=== PATIENT | male | born 1985 | race African-American/Black ===

== ENCOUNTER 2016-10-08 08:47 | Emergency (ER) | payer OTHER ==
[2016-10-08 08:52] VITALS: BP 138/79; PULSE 67; RESP 20; TEMP 98
[2016-10-08] MEDS ORDERED: BUPIVACAINE (PF) 0.5% 30 ML VIAL SQ STA (08:58)
--- NOTE | 2016-10-08 09:11 | ED ---
ENT HPI - General Chief complaint: Dental/Oral Stated complaint: DENTAL PAIN Time Seen by Provider: 10/08/16 08:54 Source: patient, RN notes reviewed Mode of arrival: ambulatory Limitations: no limitations - History of Present Illness Initial comments: 30-year-old male presents emergency Department chief complaint of left-sided dental pain. Patient states that for the past 2 days. Patient states that he started Motrin Tylenol for pain as well as Orajel. Patient some relief but then it will return. Patient states he did not see the dentist. Patient denies any pain into the neck or any difficulty in opening closing the mouth. Patient states that he was concerned due to his continued symptoms that he should be evaluated.Patient denies any recent fever, chills, shortness of breath , chest pain, back pain, abdominal pain, nausea vomiting, numbness or tingling, dysuria or hematuria, constipation or diarrhea, headaches or visual changes, or any other current symptoms. - Related Data Previous Rx's Medication Instructions Recorded Penicillin V Potassium [Pen Vee K] 500 mg PO TID #40 tab 10/08/16 traMADol HCl [Ultram] 50 mg PO Q4H PRN #20 tab 10/08/16 Allergies Allergy/AdvReac Type Severity Reaction Status Date / Time No Known Allergies Allergy Verified 10/08/16 08:52 Review of Systems ROS Statement: Those systems with pertinent positive or pertinent negative responses have been documented in the HPI. ROS Other: All systems not noted in ROS Statement are negative. Past Medical History Past Medical History: No Reported History History of Any Multi-Drug Resistant Organisms: None Reported Past Surgical History: No Surgical Hx Reported Past Psychological History: No Psychological Hx Reported Smoking Status: Current every day smoker Past Alcohol Use History: None Reported Past Drug Use History: None Reported General Exam Limitations: no limitations General appearance: alert, in no apparent distress Head exam: Present: atraumatic, normocephalic, normal inspection Eye exam: Present: normal appearance Expanded Ear exam: Present: normal external inspection Mouth exam: Present: normal external inspection Teeth exam: Present: dental tenderness # (17), other (No abscess). Absent: gingival enlargement Throat exam: normal inspection Neck exam: Present: normal inspection. Absent: tenderness, meningismus, lymphadenopathy Respiratory exam: Present: normal lung sounds bilaterally. Absent: respiratory distress, wheezes, rales, rhonchi, stridor Cardiovascular Exam: Present: regular rate, normal rhythm, normal heart sounds. Absent: systolic murmur, diastolic murmur, rubs, gallop, clicks Neurological exam: Present: alert, oriented X3, CN II-XII intact. Absent: motor sensory deficit Psychiatric exam: Present: normal affect, normal mood Skin exam: Present: warm, dry, intact, normal color. Absent: rash Course Vital Signs 10/08/16 08:48 Temperature 98 F Pulse Rate 67 Respiratory 20 Rate Blood Pressure 138/79 O2 Sat by Pulse 98 Oximetry Procedures - Nerve Block Consent Obtained: verbal consent Time Out Performed: Yes Local Anesthetic Used: Marcaine 0.5% Side: left Intraoral Nerve Block: inferior alveolar Procedure Successful: Yes Complications: none Patient Tolerated Procedure: well Medical Decision Making - Medical Decision Making 30-year-old male presents with left-sided dental pain. This time patient does appear to have dental.. The patient under went a nerve block and is feeling improvement. The STEMI discussed follow-up with the dentist. We discussed use medications and return parameters. Patient states that he understood and all his questions have been answered. He will be discharged home. Disposition Clinical Impression: Dental caries Disposition: HOME SELF-CARE Condition: Stable Instructions: Dental Caries (ED) Additional Instructions: Please use medication as discussed. Please follow up with family doctor if symptoms have not improved over the next two days. Please return to the emergency room if your symptoms increase or worsen or for any other concerns. [facility] [address] [address] [phone] (existing clients only) For new clients: [phone] 1st consult: $50 (includes Xrays) Usually 30% less then private dentist for visits after. [employer] [facility] [employer] Have to pay $50 for Xrays anmd rest is covered. [phone] Prescriptions: Penicillin V Potassium [Pen Vee K] 500 mg PO TID #40 tab traMADol HCl [Ultram] 50 mg PO Q4H PRN #20 tab PRN Reason: Pain Referrals: None,Stated [Primary Care Provider] - 1-2 days Shirley Keith MD [STAFF PHYSICIAN] - 1-2 days Time of Disposition: 09:16
== END 2016-10-08 09:22 | disposition home or self-care (01) ==
LOC: EC 08:47
DX: K02.9 Dental caries, unspecified (principal); F17.200 Nicotine dependence, unspecified, uncomplicated
CPT/HCPCS: 64400; 99282

== ENCOUNTER 2016-10-22 08:35 | Emergency (ER) | payer OTHER ==
[2016-10-22 08:56] VITALS: TEMP 98.4
--- NOTE | 2016-10-22 09:09 | ED ---
General Adult HPI - General Chief complaint: Upper Respiratory Infection Stated complaint: Sob/congestion Time Seen by Provider: 10/22/16 08:57 Source: patient Mode of arrival: ambulatory Limitations: no limitations - History of Present Illness Initial comments: 30-year-old male patient presents to emergency department stay for complaints of cough and congestion 2 months. Patient states that his symptoms are worsening, but they aren't getting any better. Patient is also complaining of some left lower dental pain. He has a large cavity has previous a completed antibiotics for this. Patient states he has an appointment with a dentist on January 19. Patient denies any fever or chills. He denies any chest pain, neck pain, shortness of breath, wheezing, facial pain, or upper dental pain. He denies any sputum production. Denies any facial swelling, or drainage from the area around the tooth. - Related Data Previous Rx's Medication Instructions Recorded Clindamycin HCl 300 mg PO Q6HR #40 cap 10/22/16 Ibuprofen [Motrin] 600 mg PO Q8HR PRN #30 tab 10/22/16 Allergies Allergy/AdvReac Type Severity Reaction Status Date / Time No Known Allergies Allergy Verified 10/22/16 08:56 Review of Systems ROS Statement: Those systems with pertinent positive or pertinent negative responses have been documented in the HPI. ROS Other: All systems not noted in ROS Statement are negative. Past Medical History Past Medical History: No Reported History History of Any Multi-Drug Resistant Organisms: None Reported Past Surgical History: No Surgical Hx Reported Past Psychological History: No Psychological Hx Reported Smoking Status: Current every day smoker Past Alcohol Use History: None Reported Past Drug Use History: Marijuana General Exam Limitations: no limitations General appearance: alert, in no apparent distress Head exam: Present: atraumatic, normocephalic, normal inspection Eye exam: Present: normal appearance, PERRL, EOMI. Absent: scleral icterus, conjunctival injection, periorbital swelling ENT exam: Present: normal exam, normal oropharynx, mucous membranes moist Expanded Teeth exam: Present: dental caries (tooth number 17), fractured tooth # (17), dental tenderness # (17) Neck exam: Present: normal inspection, full ROM. Absent: tenderness, meningismus, lymphadenopathy Respiratory exam: Present: normal lung sounds bilaterally. Absent: respiratory distress, wheezes, rales, rhonchi, stridor Cardiovascular Exam: Present: regular rate, normal rhythm, normal heart sounds. Absent: systolic murmur, diastolic murmur, rubs, gallop, clicks GI/Abdominal exam: Present: soft, normal bowel sounds. Absent: distended, tenderness, guarding, rebound, rigid Back exam: Present: normal inspection Neurological exam: Present: alert, oriented X3, CN II-XII intact Psychiatric exam: Present: normal affect, normal mood Skin exam: Present: warm, dry, intact, normal color. Absent: rash Course Vital Signs 10/22/16 08:52 Temperature 98.4 F Pulse Rate 73 Respiratory 18 Rate Blood Pressure 152/88 O2 Sat by Pulse 94 L Oximetry Medical Decision Making - Medical Decision Making 30-year-old male patient presented for evaluation of cough and toothache. X- ray was clear for any acute cardiopulmonary process. Patient will be placed on antibiotic for dental pain. Patient instructed to follow up with a dentist as soon as possible. He was informed that management of his dental caries must be performed by a dentist. Patient also educated regarding daily use of marijuana was having cause of his cough. Patient checked about this primary care physician. Patient's instructed to return for any new, worsening, or concerning symptoms. - Radiology Data Radiology results: report reviewed, image reviewed Two-view chest x-ray negative for any acute cardiac pulmonary process. Disposition Clinical Impression: Dental caries, Cough Disposition: HOME SELF-CARE Condition: Stable Instructions: Chronic Cough (ED), Dental Caries (ED), Toothache (ED) Additional Instructions: Follow-up with dentist as soon as possible. Follow primary care physician for recheck. Return for any new, worsening, or concerning symptoms. Prescriptions: Clindamycin HCl 300 mg PO Q6HR #40 cap Ibuprofen [Motrin] 600 mg PO Q8HR PRN #30 tab PRN Reason: Pain Referrals: None,Stated [Primary Care Provider] - 1-2 days Time of Disposition: 09:53
--- NOTE | 2016-10-22 09:41 | XR ---
EXAMINATION TYPE: XR chest 2V DATE OF EXAM ORDERED: 10/22/2016 9:24 AM HISTORY: Pain. REFERENCE: None. FINDINGS: The lungs are clear. Pleural spaces are clear. Heart size is normal. IMPRESSION: NORMAL CHEST.
[2016-10-22 10:17] VITALS: BP 134/68; PULSE 68; RESP 16
== END 2016-10-22 10:17 | disposition home or self-care (01) ==
LOC: EC 08:35
DX: K02.9 Dental caries, unspecified (principal); R05 Cough; F17.200 Nicotine dependence, unspecified, uncomplicated
CPT/HCPCS: 71020; 99283

== ENCOUNTER 2018-05-28 19:21 | Emergency (ER) | payer OTHER ==
[2018-05-28 19:54] VITALS: RESP 18; TEMP 98.7
[2018-05-28] MEDS ORDERED: KETOROLAC 30 MG/ML 1 ML VIAL IM STA (20:43)
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
[2018-05-28 22:16] VITALS: BP 139/72; PULSE 65
== END 2018-05-28 22:17 | disposition home or self-care (01) ==
LOC: EC 19:21
DX: M51.26 Other intervertebral disc displacement, lumbar region (principal); M48.061 Spinal stenosis, lumbar region without neurogenic claudication; Z87.891 Personal history of nicotine dependence
CPT/HCPCS: 72131; 99284; 96372; J1885